=== PATIENT | male | born 1965 | race African-American/Black ===

== ENCOUNTER 2022-07-30 11:09 | Outpatient (CLI) | payer BC | END 2022-07-30 11:10 | disposition home or self-care (01) | LOC: CSHMRI 11:09 | PROVIDERS: ATTEND Orthopaedic Surgery | DX: M48.061 Spinal stenosis, lumbar region without neurogenic claudication (principal); M47.816 Spondylosis without myelopathy or radiculopathy, lumbar region; M43.17 Spondylolisthesis, lumbosacral region; M48.07 Spinal stenosis, lumbosacral region | CPT/HCPCS: 72148 ==

== ENCOUNTER → 2023-06-24 | Day surgery (SDC) | payer BC ==
[~2023-06-24] MED LIST: FLU VACC QS2023-24(6MOS UP)/PF 60 MCG/0.5 ML SYRINGE IM ONE; Iopamidol-M 200 41% 10 ML VIAL FS ONE
[2023-06-24 11:28] VITALS: BP 121/77; TEMP 96.1
== END ==
LOC: CSHRAD 09:46
PROVIDERS: ATTEND Specialist
PROC: B02BYZZ Computerized Tomography (CT Scan) of Spinal Cord using Other Contrast (ICD-10-PCS; principal; 2023-06-24)
DX: M47.26 Other spondylosis with radiculopathy, lumbar region (principal); M48.062 Spinal stenosis, lumbar region with neurogenic claudication
CPT/HCPCS: 62304; 72120; 72132; Q9966